=== PATIENT | female | born 1995 | race Two or more races ===

== ENCOUNTER 2024-06-15 00:13 | Emergency (ER) | payer MEDICAID ==
[~2024-06-15] VITALS: Ht 152.4 cm; Wt 59.0 kg
[2024-06-15 07:35] VITALS: BP 121/60; TEMP 98.2; O2SAT 99
== END 2024-06-15 07:36 | disposition home or self-care (01) ==
LOC: ER 00:18
DX: F10.129 Alcohol abuse with intoxication, unspecified (principal)
CPT/HCPCS: 82962-TC